=== PATIENT | female | born 1995 | race Caucasian/White ===

== ENCOUNTER 2020-08-01 10:40 | Emergency (ER) | payer OTHER ==
[~2020-08-01] VITALS: Ht 160 cm; Wt 61.2 kg
[2020-08-01] MEDS ORDERED: NAPROXEN500 MG (10:52)
[2020-08-01] MEDS ORDERED: AMRIX15 MG (10:52)
[2020-08-01] MEDS ORDERED: BUTALBIT-ACETA1 EACH PO (13:02)
[2020-08-01] MEDS ORDERED: MAXALT10 MG PO (13:02)
== END 2020-08-01 14:06 ==
LOC: ER 10:40
DX: G44.201 Tension-type headache, unspecified, intractable (principal); Z20.828 Contact with and (suspected) exposure to other viral communicable diseases